=== PATIENT | female | born 1960 | race Caucasian/White ===

== ENCOUNTER → 2016-11-03 | Outpatient (CLI) | payer BC ==
[~2016-11-03] MED LIST: CETI10TA84 PO; CHOL100027 PO; CLON0.5T3 PO; FLNIN NAE; FSMD/70 PO; GENTAMYCIN NAE; LEVO112T2 PO; MULT-614 PO; PTDOPS OP; lutein PO; probiotic PO
--- NOTE | 2016-11-03 16:38 | DIAGNOSTIC IMAGING REPORT ---
C-SPINE ROUTINE 4 OR 5 VIEWS CLINICAL HISTORY: Neck sprain. Headache COMPARISON STUDY: No previous studies for comparison. FINDINGS: Alignment of the cervical spine is anatomic. Vertebral body heights are maintained. There is no fracture. Facet joints are intact. Prevertebral soft tissues are unremarkable. Minimal endplate osteophytosis is noted at several levels. IMPRESSION: 1. No acute cervical spine fracture or subluxation. 2. Minimal degenerative changes of the cervical spine. Electronically signed by: Tommy Marcus M.D. 11/03/2016 4:37 PM Dictated Date/Time: 11/03/2016 4:36 PM
== END | disposition home or self-care (01) ==
LOC: C.RADPV 16:24
PROVIDERS: ATTEND Family Medicine
DX: R51 Headache (principal); S13.9XXA Sprain of joints and ligaments of unspecified parts of neck, initial encounter; X58.XXXA Exposure to other specified factors, initial encounter

== ENCOUNTER → 2017-06-09 | Outpatient (CLI) | payer BC ==
[2017-06-09 13:38] LABS: ALT/SGPT 34 U/L (12-78); AST/SGOT 31 U/L (15-37); BLOOD UREA NITROGEN 28 mg/dl (7-18); BUN/CREATININE RATIO 32.5 (10-20); CALCIUM 8.9 mg/dl (8.5-10.1); CARBON DIOXIDE 26 mmol/L (21-32); CHLORIDE 110 mmol/L (98-107); CREATININE 0.85 mg/dl (0.60-1.20); GLUCOSE 88 mg/dl (70-99); POTASSIUM 4.1 mmol/L (3.5-5.1); SODIUM 142 mmol/L (136-145)
[2017-06-09 13:49] LABS: ALB/GLOB RATIO 0.9 (0.9-2); ALKALINE PHOSPHATASE 121 U/L (45-117); CHOLESTEROL 125 mg/dl (0-200); HDL CHOLESTEROL 64 mg/dl; LDL CHOLESTEROL CALCULATED 51 mg/dl; THYROID STIMULATING HORMONE 0.726 uIu/ml (0.300-4.500); TRIGLYCERIDES 51 mg/dl (0-150); VERY LOW DENSITY LIPOPROT CALC 10 mg/dl
[2017-06-09 13:57] LABS: CALCIUM 9.4 mg/dl (8.5-10.1)
== END | disposition home or self-care (01) ==
LOC: C.LABPVFM 09:32
PROVIDERS: ATTEND Family Medicine
DX: G40.909 Epilepsy, unspecified, not intractable, without status epilepticus (principal); E03.9 Hypothyroidism, unspecified; Z13.220 Encounter for screening for lipoid disorders

== ENCOUNTER → 2017-07-04 | Outpatient (CLI) | payer OTHER, BC ==
--- NOTE | 2017-07-04 17:41 | DIAGNOSTIC IMAGING REPORT ---
LEFT WRIST 4 VIEWS HISTORY: Left wrist pain. COMPARISON: Left wrist 02/23/2009. FINDINGS: Old, healed fracture of the distal radius. No acute fracture or dislocation within the left wrist. The bones are osteopenic. The scaphoid appears intact. Mild soft tissue swelling. No radiopaque foreign bodies. IMPRESSION: No acute fracture or dislocation within the left wrist. Electronically signed by: Nolan Mackay M.D. 07/04/2017 5:39 PM Dictated Date/Time: 07/04/2017 5:36 PM
--- NOTE | 2017-07-27 10:27 | CODING QUERY NO DIAGNOSIS ---
TREATMENT RENDERED WITHOUT A DIAGNOSIS To promote full compliance with coding requirements relating to patient care, physician participation is requested in all cases of certified medical records coder uncertainty. Please assist us with providing a diagnosis/symptom for the test(s) below: A diagnosis/symptom was not documented on your Order. A valid diagnosis/symptom is required to bill all insurances. Please remember that we are unable to code a diagnosis of rule out, probable, possible, questionable, or suspected. Tests that require a diagnosis: * WRIST XRAY MIN 3 VIEWS ROUTINE DIAGNOSIS: Provider Signature: Date: Thank you Shalonda Ira [employer] Once completed, please kindly fax back to [phone] For questions please call [phone]
== END | disposition home or self-care (01) ==
LOC: C.RAD1850 15:57
PROVIDERS: ATTEND Nurse Practitioner
DX: S63.8X2D Sprain of other part of left wrist and hand, subsequent encounter (principal); X58.XXXD Exposure to other specified factors, subsequent encounter

== ENCOUNTER → 2017-08-28 | Outpatient (CLI) | payer BC | END | disposition home or self-care (01) | LOC: C.MAMM 11:29 | PROVIDERS: ATTEND Internal Medicine Endocrinology, Diabetes & Metabolism | DX: M81.0 Age-related osteoporosis without current pathological fracture (principal) ==

== ENCOUNTER → 2017-08-28 | Outpatient (CLI) | payer BC ==
--- NOTE | 2017-08-28 13:07 | MAMMOGRAPHY REPORT ---
BILATERAL DIGITAL SCREENING MAMMOGRAM TOMOSYNTHESIS WITH CAD: 08/28/2017 CLINICAL HISTORY: Routine screening. TECHNIQUE: Breast tomosynthesis in addition to standard 2D mammography was performed. Current study was also evaluated with a Computer Aided Detection (CAD) system. COMPARISON: Comparison is made to exams dated: 08/07/2016 mammogram, 08/03/2015 mammogram, 4 mammogram, 07/18/2013 mammogram, 07/17/2012 mammogram, and 07/17/2011 mammogram - [facility]. BREAST COMPOSITION: There are scattered areas of fibroglandular density in both breasts. FINDINGS: The parenchymal pattern is unchanged. No developing mass, architectural distortion or clus ter of suspicious microcalcifications is seen in either breast. IMPRESSION: ACR BI-RADS CATEGORY 2: BENIGN There is no mammographic evidence of malignancy. A 1 year screening mammogram is recommended. The pa tient will receive written notification of the results. Approximately 10% of breast cancers are not detected with mammography. A negative mammographic report should not delay biopsy if a clinically suggestive mass is present. Jeanette Spencer M.D. ay/:08/28/2017 12:53:59 [employer] Operator: Rich SALGUERO(Corina)(M), [facility] letter sent: Normal 1/2 BI-RADS Code: ACR BI-RADS Category 2: Benign
== END | disposition home or self-care (01) ==
LOC: C.MAMM 11:31
PROVIDERS: ATTEND Obstetrics & Gynecology
DX: Z12.31 Encounter for screening mammogram for malignant neoplasm of breast (principal)

== ENCOUNTER → 2017-09-15 | Outpatient (CLI) | payer OTHER | END | disposition home or self-care (01) | LOC: C.LABSPEC 10:10 | PROVIDERS: ATTEND Internal Medicine Endocrinology, Diabetes & Metabolism | DX: M81.0 Age-related osteoporosis without current pathological fracture (principal) ==

== ENCOUNTER → 2017-11-02 | Outpatient (CLI) | payer OTHER ==
[~2017-11-02] MED LIST changes: +CALCIUM CITRATE PO; +EYECAPS PO; +FLUT0.15 INTRAD; +LEVO100T7 PO; +MISCCAP80 PO; +TERI600S SQ; +TRAM-10 PO; +VNTHFA/IN INH
--- NOTE | 2017-11-02 15:52 | DIAGNOSTIC IMAGING REPORT ---
SINUSES WITH BRAIN LAB CLINICAL HISTORY: Chronic sinusitis. COMPARISON STUDY: Sinus CT February 26, 2017. TECHNIQUE: Axial images of the sinuses were obtained without IV contrast. Coronal reformats were viewed. FINDINGS: Visual portions of the intracranial contents are unremarkable this unenhanced exam. Mastoid air cells are clear. Orbits are unremarkable. The right maxillary and right frontal sinuses are entirely opacified. The anterior right ethmoid sinuses are also opacified. There is moderate polypoid mucosal thickening of the left maxillary sinus. There is a tiny left sphenoid sinus air-fluid level. The right ostiomeatal complex is occluded. The left ostiomeatal complex is patent. The left sphenoethmoidal recess is patent. The right is occluded. The right frontoethmoidal recess is occluded. Cribriform plate is intact. There is moderate rightward deviation of the nasal septum. No bony destruction is identified. IMPRESSION: 1. Extensive sinus opacification, including complete opacification of the right maxillary, frontal and anterior right ethmoid sinuses with occluded right ostiomeatal complex, right frontoethmoidal recess and right sphenoethmoidal recess. 2. Moderate rightward deviation of the nasal septum. Electronically signed by: Tommy Marcus M.D. 11/02/2017 3:51 PM Dictated Date/Time: 11/02/2017 3:46 PM
== END | disposition home or self-care (01) ==
LOC: C.CTS 15:27
PROVIDERS: ATTEND Otolaryngology
DX: J34.2 Deviated nasal septum (principal); J01.20 Acute ethmoidal sinusitis, unspecified; J01.00 Acute maxillary sinusitis, unspecified; J01.10 Acute frontal sinusitis, unspecified

== ENCOUNTER 2017-11-09 06:36 | Day surgery (SDC) | payer OTHER ==
[2017-11-06 15:21] VITALS: Ht 152.4 cm; Wt 60.3 kg
--- NOTE | 2017-11-06 15:36 | PAT Medication Instructions ---
Service Date Nov 06, 2017. Current Home Medication List Albuterol Hfa (Ventolin Hfa), 2 PUFFS INH Q6H PRN for PRN Cetirizine (Zyrtec), 10 MG PO QAM Clonazepam (Klonopin), 0.5 MG PO BID Fluticasone Propionate (Nasal) (Flonase Allergy Relief), 2 SPRAYS INTRAD prn Levothyroxine Sodium (Synthroid), 112 MCG PO Q2D Levothyroxine Sodium (Levothyroxine Sodium), 1 TAB PO Q2D Multiple Vitamins W/ Minerals (Centrum Silver Ultra Wome), 1 TAB PO QAM Olopatadine Hydrochloride (Pataday), 1 DROPS OP ALLERGIES Probiotic Product (Probiotic), 1 TAB PO QAM Teriparatide (Recombinant) (Forteo), 20 MCG SQ QPM [Calcium Citrate], 1 TAB PO BID [Eyecaps], 1 TAB PO QAM [Gentamycin], 1 DOSE JORGE NEEDED Medication Instructions For Your Scheduled Surgery - Continue as directed: Olopatadine Hydrochloride (Pataday), 1 DROPS OP ALLERGIES Levothyroxine Sodium (Synthroid), 112 MCG PO Q2D Levothyroxine Sodium (Levothyroxine Sodium), 1 TAB PO Q2D - Hold the following medications the morning of surgery: Cetirizine (Zyrtec), 10 MG PO QAM Multiple Vitamins W/ Minerals (Centrum Silver Ultra Wome), 1 TAB PO QAM Probiotic Product (Probiotic), 1 TAB PO QAM [Calcium Citrate], 1 TAB PO BID [Eyecaps], 1 TAB PO QAM [Gentamycin], 1 DOSE JORGE NEEDED - Take the following medications the morning of surgery with a sip of water: Fluticasone Propionate (Nasal) (Flonase Allergy Relief), 2 SPRAYS INTRAD prn ( if needed) Clonazepam (Klonopin), 0.5 MG PO BID Albuterol Hfa (Ventolin Hfa), 2 PUFFS INH Q6H PRN for PRN (if needed) - Take the following medications as scheduled the night before surgery: [Calcium Citrate], 1 TAB PO BID Teriparatide (Recombinant) (Forteo), 20 MCG SQ QPM Fluticasone Propionate (Nasal) (Flonase Allergy Relief), 2 SPRAYS INTRAD prn ( if needed) Clonazepam (Klonopin), 0.5 MG PO BID Albuterol Hfa (Ventolin Hfa), 2 PUFFS INH Q6H PRN for PRN (if needed) If you have any questions please call us at [phone] or [phone] or [phone]
[2017-11-06 16:43] LABS: BASO % 0.4 %; BASO ABS # 0.03 K/uL (0-0.2); EOS % 0.2 %; EOS ABS # 0.02 K/uL (0-0.5); HEMATOCRIT 36.2 % (37-47); HEMOGLOBIN 12.7 g/dL (12.0-16.0); IG# 0.01 K/uL (0.00-0.02); LYMPH % 35.5 %; LYMPH ABS # 2.86 K/uL (1.2-3.4); MEAN CELL VOLUME 85.4 fL (80-100); MEAN CORPUSCULAR HGB CONC 35.1 g/dl (32-36); MEAN PLATELET VOLUME 9.8 fL (7.4-10.4); MONO % 11.6 %; MONO ABS # 0.93 K/uL (0.11-0.59); NEUT % 52.2 %; PLATELET COUNT 316 K/uL (130-400); RED CELL DISTRIBUTION WIDTH CV 13.8 % (11.5-14.5); RED CELL DISTRIBUTION WIDTH SD 42.8 fL (36.4-46.3); WHITE BLOOD COUNT 8.05 K/uL (4.8-10.8)
[2017-11-06 16:53] LABS: CALCIUM 9.4 mg/dl (8.5-10.1); CREATININE 0.93 mg/dl (0.60-1.20); POTASSIUM 4.3 mmol/L (3.5-5.1)
--- NOTE | 2017-11-08 16:53 | History and Physical ---
History & Physical Date Nov 08, 2017. Chief Complaint sinus infection History of Present Illness The patient is a 57 year old female with complaints of chronic sinusitis since August, complicated by C. dificile colitis Additional History Hepatic Disease: No Endocrine Disorder: No Kidney Disease: No Hypertension: No Heart Disease: No Bleeding Tendencies: No Infectious Diseases: No Allergies Coded Allergies: Acetaminophen (Unverified Allergy, Unknown, UNKNOWN REACTION, 11/06/17) PER RECORDS Amoxicillin (Verified Allergy, Unknown, C DIFF WITH MANY ANTIBIOTICS, 11/06) Cefuroxime (Verified Allergy, Unknown, C DIFF WITH MANY ANTIBIOTICS, ) Clavulanic Acid (Verified Allergy, Unknown, C DIFF WITH MANY ANTIBIOTICS, 11/06/17) Codeine (Verified Allergy, Unknown, HUNG OVER NEXT DAY, 11/06/17) Diazepam (Verified Allergy, Unknown, RASH, 11/06/17) Diphenhydramine (Verified Allergy, Unknown, HUNG OVER NEXT DAY, 11/06/17) Oxycodone (Unverified Allergy, Unknown, UNKNOWN REACTION, 11/06/17) PER RECORDS Phenytoin (Verified Allergy, Unknown, RASH, 11/06/17) Propoxyphene (Verified Allergy, Unknown, UNKNOWN, 11/06/17) Sulfamethoxazole w/Trimethoprim (Unverified Allergy, Unknown, UNKNOWN REACTION, 11/06/17) PER RECORDS Tetracycline (Verified Allergy, Unknown, GETS C DIFF WITH MANY ANTIBIOTICS , 11/06/17) Home Medications Scheduled Cetirizine (Zyrtec), 10 MG PO QAM Clonazepam (Klonopin), 0.5 MG PO BID Fluticasone Propionate (Nasal) (Flonase Allergy Relief), 2 SPRAYS INTRAD prn Levothyroxine Sodium (Synthroid), 112 MCG PO Q2D Levothyroxine Sodium (Levothyroxine Sodium), 1 TAB PO Q2D Multiple Vitamins W/ Minerals (Centrum Silver Ultra Wome), 1 TAB PO QAM Olopatadine Hydrochloride (Pataday), 1 DROPS OP ALLERGIES Probiotic Product (Probiotic), 1 TAB PO QAM Teriparatide (Recombinant) (Forteo), 20 MCG SQ QPM [Calcium Citrate], 1 TAB PO BID [Eyecaps], 1 TAB PO QAM [Gentamycin], 1 DOSE JORGE NEEDED Scheduled PRN Albuterol Hfa (Ventolin Hfa), 2 PUFFS INH Q6H PRN for PRN Physical Examination Skin: warm/dry, no rash Eyes: normal inspection, EOMI, sclerae normal ENT: normal ENT inspection, pharynx normal, + pertinent finding (muco purulent drainage R > L [facility]) Head: normocephalic, atraumatic Neck: supple, no adenopathy, trachea midline Respiratory/Chest: lungs clear, normal breath sounds, no respiratory distress Cardiovascular: regular rate, rhythm, no edema, no murmur Abdomen / GI: normal bowel sounds, non tender Back: normal inspection Extremities: normal inspection, normal range of motion Neurologic/Psych: no motor/sensory deficits, alert, normal reflexes, oriented x 3 Diagnosis chronic sinusitis Plan of Treatment endoscopic sinus surgery
[~2017-11-09] VITALS: Ht 152.4 cm; Wt 60.3 kg
[~2017-11-09 06:36] MED LIST changes: +CEFAZOLIN 1000MG IV PUSH 7.5 ML IV SCH; -CHOL100027 PO; -FLNIN NAE; -FSMD/70 PO; +LACTATED RINGER'S 1000ML 1,000 ML IV SCH; -TRAM-10 PO; -lutein PO; -probiotic PO
[2017-11-09 07:15] VITALS: BP 111/63; PULSE 85; TEMP 36.6; O2SAT 97
[2017-11-09] MEDS ORDERED: NURSING VERBAL MED ORDER ONE (07:15)
--- NOTE | 2017-11-09 08:04 | History & Physical Bridge Note ---
H&P Re-Evaluation Bridge Note: I have examined the patient, reviewed the History & Physical and in the interval since the performance of the History & Physical I have noted the following changes of clinical significance: No changes noted
[2017-11-09] MEDS ORDERED: EpHEDrine SULFATE INJ 50 MG/ML AMP IV PRN (08:15)
[2017-11-09] MEDS ORDERED: ONDANSETRON INJ 2 MG/ML 2 ML VIAL IV PRN ×2 (08:15→11:15)
[2017-11-09] MEDS ORDERED: HYDROmorphone INJ 1 MG/ML SYR IV PRN (08:15)
[2017-11-09] MEDS ORDERED: ATROPINE SULFATE 0.1 MG/ML 5ML SYR IV PRN (08:15)
[2017-11-09] MEDS ORDERED: MEPERIDINE HCL 25 MG/ML CARP IV PRN (08:15)
[2017-11-09] MEDS ORDERED: LABETALOL HCL IV 5 MG/ML 20ML IV PRN (08:15)
[2017-11-09] MEDS ORDERED: FENTANYL CITRATE INJ 50 MCG/1 ML 2 ML VIAL IV PRN (08:15)
[2017-11-09] MEDS ORDERED: FENTANYL CITRATE INJ 50 MCG/1 ML 2 ML VIAL ONE (08:20)
[2017-11-09] MEDS ORDERED: DEXAMETHASONE SOD INJ 4 MG/ML VIAL ONE (08:20)
[2017-11-09] MEDS ORDERED: GLYCOPYRROLATE INJ 0.2 MG/ML VIAL ONE ×2 (08:20→10:06)
[2017-11-09] MEDS ORDERED: LIDOCAINE HCL 2% 2 ML VIAL (20MG/ML) ONE (08:20)
[2017-11-09] MEDS ORDERED: ONDANSETRON INJ 2 MG/ML 2 ML VIAL ONE ×2 (08:20→10:06)
[2017-11-09] MEDS ORDERED: PROPOFOL IV EMULSION 10 MG/ML 20 ML VIAL IV ONE (08:20)
[2017-11-09] MEDS ORDERED: NEOSTIGMINE METHYLSULFATE 5 MG/5 ML SYR ONE (08:20)
[2017-11-09] MEDS ORDERED: MIDAZOLAM HCL 1 MG/ML 2ML VIAL ONE (08:20)
[2017-11-09] MEDS ORDERED: GELATIN SPONGE 12-7MM ONE (08:21)
[2017-11-09] MEDS ORDERED: LIDO 2%/EPINEPHRINE 1:100000 20 ML VIAL INFIL ONE (08:22)
[2017-11-09] MEDS ORDERED: BACITRACIN OINT 15 GM TUBE ONE (08:22)
[2017-11-09] MEDS ORDERED: EpINEphrine INJ 1MG/ML AMP 1 MG/ML AMP ONE (08:22)
[2017-11-09] MEDS ORDERED: TRIAMCINOLONE ACET 40 MG/ML VIAL ONE (08:22)
[2017-11-09] MEDS ORDERED: LIDOCAINE 4% INH SOLN 4 ML BTL ONE (08:22)
[2017-11-09] MEDS ORDERED: LARYING-O-JET KIT (LTA) ONE (08:48)
[2017-11-09] MEDS ORDERED: PHENYLEPHRINE 100MCG/ML 5ML SYR ONE (08:48)
[2017-11-09] MEDS ORDERED: EpINEphrine HCL INJ 1 MG/ML 1ML SYRINGE ONE (09:44)
[2017-11-09] MEDS ORDERED: ROCURONIUM BROMIDE 10 MG/ML 5 ML VIAL IV ONE (10:06)
[2017-11-09] MEDS ORDERED: SODIUM CHLORIDE 0.9% INJ 10 ML VIAL ONE (10:15)
[2017-11-09] MEDS ORDERED: HYDROmorphone INJ 2 MG/ML SYR/VIAL ONE (10:15)
--- NOTE | 2017-11-09 10:38 | [facility] Post Operative Brief Note ---
Immediate Operative Summary Operative Date Nov 09, 2017. Pre-Operative Diagnosis Chronic Sinusitis Post-Operative Diagnosis Chronic sinusitis Procedure(s) Performed Endoscopic sinus surgery, right and left frontal, right and left sphenoid, right and left total ethmoid, right and left mixillary. Surgeon Dr. Herrera Top Lift Nailer Surgeon(s) None Estimated Blood Loss 100 ml Findings Consistent with Post-Op Diagnosis Specimens Culture #1: Right maxillary for routine culture and sensitivity and anaerobic/aerobic. Drains None Anesthesia Type General Complication(s) none Disposition Accompanied Pt To Recover: no Disposition: Recovery Room / PACU
[2017-11-09] MEDS ORDERED: SODIUM CHLORIDE 0.9% 1000ML 1,000 ML IV SCH (11:06)
--- NOTE | 2017-11-09 11:13 | [facility] Operative Report ---
Operative Report Operative Date Nov 09, 2017. Pre-Operative Diagnosis Chronic Sinusitis Post-Operative Diagnosis Chronic sinusitis Procedure(s) Performed Bilateral endoscopic sinus surgery, right and left frontal, right and left sphenoid, right and left total ethmoid, right and left mixillary. Surgeon Dr. Herrera Job Printer Apprentice Surgeon(s) None Estimated Blood Loss 100 ml Findings Purulent drainage from right frontal ethmoid and maxillary sinuses, cultured Specimens Culture #1: Right maxillary for routine culture and sensitivity and anaerobic/aerobic. Drains None Anesthesia Type General Complication(s) none Disposition no Recovery Room / PACU Indications 57-year-old female with persistent sinusitis since August unresponsive to medical management complicated by history of C. difficile colitis Description of Procedure The patient was brought to the operating room and placed in the supine position. General endotracheal anesthesia was induced. nooked device was calibrated and used for the entire procedure. She was prepped and draped in the usual sterile manner. The nose was decongested using cottonoids with a topical solution of 4 cc of 4% Xylocaine mixed with 1 cc of epinephrine. Injection of 2% Xylocaine with 1-100,000 strength epinephrine was also used. The left sphenoid was cannulated with the guidewire with nooked computer guidance and dilated using a 6 mm balloon as well as the right sphenoid sinus. The left maxillary sinus was cannulated with the guidewire and dilator using a 6 mm balloon. The right maxillary sinus could not be cannulated. The left nasal frontal duct was cannulated with the guidewire and dilated using the 6 mm balloon with nooked computer guidance. The guidewire was left in place as a marker as the catheter was withdrawn. The guidewire was used as a marker for formal sinusotomy. This was performed using the shaver couple with the [employer] device removing the anterior wall and then the posterior wall of the Agger nasi cell. At this point total ethmoidectomy was performed opening up the bullae ethmoidalis, going through the ground lamella into the posterior ethmoid air cells, delineating the skull base superiorly and lamina papyracea bilaterally, and then exonerating all the posterior and then all the anterior ethmoid air cells which were filled with polypoid mucosa. The ethmoids were exonerated up to the previously dilated the nasofrontal duct. The sphenoid ostia was opened by removing polypoid tissue at the anterior face at the inferior border of the superior turbinate. Maxillary sinus was opened by removing the polypoid mucosa at the posterior border at the anterior wall of the bullae ethmoidalis. The right frontal sinusotomy total ethmoidectomy and sphenoidotomy was performed in a similar manner, although the frontal sinus was found to be filled with purulent material and had to be irrigated clean with 120 cc of saline. The sphenoid sinus was also found to have purulent material and was irrigated clean with saline. The ethmoids were filled with polyps and purulent material and had to be totally exonerated. The maxillary sinus with bulging and the ostia had to be found using the seeker and then dilated posteriorly and inferiorly and opened using the shaver couple with the [employer] device. Purulent material was cultured from the maxillary sinus and the maxillary sinus was irrigated clean with saline. Contour stents were placed in the right and left nasal frontal duct and a single propel stent was placed in the right ethmoid area. Hematin powder was placed. The patient tired procedure well and was taken recovery area in satisfactory condition. I attest to the content of the Intraoperative Record and any orders documented therein. Any exceptions are noted below.
[2017-11-09] MEDS ORDERED: MoRPHine SULFATE 2 MG/ML CARP IV PRN (11:15)
[2017-11-09] MEDS ORDERED: TRAM-10 PO (11:15)
[2017-11-09] MEDS ORDERED: KETOROLAC TROMETHAMINE 30 MG/ML VIAL IV. PRN (11:15)
--- NOTE | 2017-11-09 11:16 | Discharge Instructions-SurgCtr ---
Discharge Instructions Date of Service Nov 09, 2017. Visit Reason for Visit: Chronic Sinusitis Discharge Discharge Diagnosis / Problem: Same Discharge Goals Goal(s): Improve disease control Activity Recommendations Activity Limitations: per Instructions/Follow-up section Anesthesia . Post Anesthesia Instructions: If you have had General Anesthesia or IV Sedation: * Do not drive today. * Resume driving when surgeon permits. * Do not make important decisions or sign legal documents today. * Call surgeon for: 1. Temperature elevations greater than 101 degrees F. 2. Uncontrollable pain. 3. Excessive bleeding. 4. Persistent nausea and vomiting. 5. Medication intolerance (nausea, vomiting or rash). * For nausea and vomiting use only clear liquids such as: tea, soda, bouillon until nausea subsides, then gradually increase diet as tolerated. * If you have any concerns or questions, call your surgeon's office. If physician is unavailable and it is an emergency, call 911 or go to the nearest emergency room. . Instructions / Follow-Up Instructions / Follow-Up ACTIVITY RECOMMENDATIONS: * Being up and around is good, but no strenuous activity, heavy lifting or physical exertion for one week. * Keep your head elevated 30 degrees when lying down or sleeping. * Do not blow your nose for 48 hours, sniff back instead. * Avoid hot showers. OVER THE COUNTER MEDICATIONS: * You may use Tylenol * Avoid aspirin or aspirin containing products, e.g. as they may increase bleeding. SPECIAL CARE INSTRUCTIONS: * Expect to have bloody drainage from your nose and/or down your throat for one to three days. Change drip pad as needed. * Begin irrigating your nose with saline solution today, at least six to ten times per day and sniff back to help remove old clots or crust. * You may experience nasal and facial congestion, pain and pressure, this is normal. * Please call with any significant and/or progressive pain, redness, swelling around the eyes, visual changes, fever of 101.5 degrees F, active bleeding or any problems or concerns. * If active bleeding occurs, spray the nose three times at one minute intervals with Afrin spray and call or cell phone: . If unable to reach the doctor, go to the nearest Emergency Department. Special Diet: * Avoid extremely hot fluids. FOLLOW UP VISIT: Follow-up Visit with Dr. Herrera If not already scheduled, please call to schedule. Diet Recommendations Home Diet: no limitations Procedures Procedures Performed: Bilateral endoscopic sinus surgery, right and left frontal, right and left sphenoid, right and left total ethmoid, right and left mixillary. Pending Studies Studies pending at discharge: no Medical Emergencies . Who to Call and When: Medical Emergencies: If at any time you feel your situation is an emergency, please call 911 immediately. . Non-Emergent Contact Non-Emergency issues call your: Primary Care Provider . . "Provider Documentation" section prepared by Deb Herrera. . [place] Drug Monitoring Program Search Results: no issues identified
[2017-11-09 11:40] VITALS: BP 115/61; PULSE 80; TEMP 36.5; O2SAT 93
--- NOTE | 2017-11-09 11:49 | Anesthesiology Progress Note ---
Anesthesia Post Op Note Date & Time Nov 09, 2017 at 11:49 Vital Signs Pain Intensity: 0 Vital Signs Past 12 Hours Date Time Temp Pulse Resp B/P (MAP) Pulse Ox O2 Delivery O2 Flow Rate FiO2 11/09/17 11:32 84 14 117/68 91 11/09/17 11:32 84 14 11/09/17 11:27 80 14 92 11/09/17 11:27 81 14 11/09/17 11:26 108/79 11/09/17 11:25 83 9 11/09/17 11:25 82 9 92 11/09/17 11:23 36.7 83 16 108/79 (89) 93 Room Air 11/09/17 11:21 122/72 11/09/17 11:20 85 16 11/09/17 11:20 86 16 92 11/09/17 11:19 87 15 94 11/09/17 11:19 87 15 11/09/17 11:18 89 17 11/09/17 11:18 89 17 95 11/09/17 11:16 115/65 11/09/17 11:13 79 12 11/09/17 11:13 79 12 97 11/09/17 11:11 117/75 11/09/17 11:08 83 99 11/09/17 11:08 83 11/09/17 11:06 123/66 11/09/17 11:03 75 98 11/09/17 11:03 75 11/09/17 11:01 128/76 11/09/17 10:58 84 98 11/09/17 10:58 85 11/09/17 10:56 116/80 11/09/17 10:54 120/74 11/09/17 10:53 36.7 84 12 120/74 (92) 99 Oxymask 10 11/09/17 07:15 36.6 85 20 111/63 (79) 97 Room Air Notes Mental Status: alert / awake / arousable, participated in evaluation Pt Amnestic to Procedure: Yes Nausea / Vomiting: adequately controlled Pain: adequately controlled Airway Patency, RR, SpO2: stable & adequate BP & HR: stable & adequate Hydration State: stable & adequate Anesthetic Complications: no major complications apparent
[2017-11-09] MEDS ORDERED: KETOROLAC TROMETHAMINE 30 MG/ML VIAL ONE (11:54)
[2017-11-09 12:18] VITALS: BP 114/78; PULSE 81; O2SAT 94
[2017-11-09 12:50] VITALS: BP 112/58; PULSE 75; TEMP 36.7; O2SAT 94
== END 2017-11-09 13:01 | disposition home or self-care (01) ==
LOC: C.ACU 06:36
PROVIDERS: ATTEND Otolaryngology
DX: J32.9 Chronic sinusitis, unspecified (principal); Z86.19 Personal history of other infectious and parasitic diseases; Z88.5 Allergy status to narcotic agent; Z88.1 Allergy status to other antibiotic agents; Z88.2 Allergy status to sulfonamides; Z88.0 Allergy status to penicillin